=== PATIENT | female | born 1990 | race American Indian/Alaskan Native ===

== ENCOUNTER 2020-11-26 18:44 | Emergency (ER) | payer SELFPAY ==
--- NOTE | 2020-11-26 23:21 | Emergency Department Report ---
ED Laceration HPI - HPI Chief Complaint: Wound/Laceration Stated Complaint: LAC TO INDEX FINGER LT Time Seen by Provider: 11/26/20 22:30 Location: Upper Extremity (Left index finger) Severity: mild Tetanus Status: Not up to Date Laceration Symptoms: Yes Pain, No Foreign Body Sensation, No Numbness, No Weakness Other History: This is a 29-year-old female with no prior medical conditions who presents to ED complaining of avulsion laceration to the left index finger that happened earlier when she was cutting a watermelon and she accidentally had the knife sliced the remaining cut part of her skin off. Patient states bleeding and pain. She states bleeding was controlled with pressure dressing. She denies any medical problems, fever, chills, nausea vomiting or diarrhea. ED Review of Systems ROS: Stated complaint: LAC TO INDEX FINGER LT Other details as noted in HPI Comment: All other systems reviewed and negative ED Past Medical Hx - Past Medical History Previous Medical History?: No - Surgical History Past Surgical History?: No - Social History Smoking Status: Never Smoker Substance Use Type: None - Medications Home Medications: Home Medications Medication Instructions Recorded Confirmed Last Taken Type Ibuprofen [Motrin 800 MG tab] 800 mg PO TID #30 tablet 11/27/20 Unknown Rx cephALEXin [Keflex] 500 mg PO Q8HR #15 cap 11/27/20 Unknown Rx Laceration Physical Exam - Exam General: Vital signs noted. No distress. Alert and acting appropriately. Wound Length (cm): 1 Laceration Location: Upper Extremity Full Body Front + Back: 1 - Small 0.5 avulsed laceration to the index finger Laceration Exam: Yes Normal Distal CMS, No Foreign Body, No Exposed Tendon, Vessel, or Nerve, No Tendon Injury ED Medical Decision Making - Medical Decision Making This 29-year-old female presents who presented to the ED with small finger a vulsion laceration. There was no indication for laceration repair due to the type of avulsed injury. Wound was cleaned with Betadine. Dermabond applied and sterile gauze dressing applied with pressure dressing. Discussed with patient that the wound would heal and to keep dressing for 48 hours and change daily after that. Discussed pain control and antibiotics. Patient was in no acute distress or respiratory distress throughout ED stay. Critical care attestation.: If time is entered above; I have spent that time in minutes in the direct care of this critically ill patient, excluding procedure time. ED Disposition Clinical Impression: Avulsion of finger tip, Finger laceration Disposition: [id number] TO HOME OR SELFCARE Is pt being admited?: No Does the pt Need Aspirin: No Condition: Stable Instructions: Laceration Care, Adult, [id number], Nonsutured Laceration Care Additional Instructions: Make sure to follow up with the primary care physician as discussed. Take all your medications as you've been prescribed. If you have any worsening symptoms or develop new symptoms please return to ED immediately. Prescriptions: cephALEXin [Keflex] 500 mg PO Q8HR #15 cap Ibuprofen [Motrin 800 MG tab] 800 mg PO TID #30 tablet Referrals: CORBY MONTAÑO MD [Primary Care Provider] - 3-5 Days [facility] [Outside] - 3-5 Days [facility] [Outside] - 3-5 Days Forms: Work/School Release Form(ED) Time of Disposition: 00:39
[2020-11-26] MEDS ORDERED: TETANUS,DIPH,PERTUSS(ACELL) VACCINE 0.5 ML SYRINGE IM ONE (23:42)
[2020-11-26] MEDS ORDERED: IBUPROFEN 800 MG TAB PO ONE (23:42)
[2020-11-27 00:35] VITALS: BP 111/66
== END 2020-11-27 01:00 | disposition home or self-care (01) ==
LOC: ED 18:44
DX: S61.211A Laceration without foreign body of left index finger without damage to nail, initial encounter (principal); W26.0XXA Contact with knife, initial encounter; Y93.89 Activity, other specified; Y92.89 Other specified places as the place of occurrence of the external cause; Y99.8 Other external cause status
CPT/HCPCS: 90471; 90715; 99282